=== PATIENT | male | born 1995 | race Caucasian/White ===

== ENCOUNTER 2024-11-07 19:30 | Emergency (ER) | payer OTHER ==
[~2024-11-07] VITALS: Ht 175.3 cm; Wt 122.5 kg
== END 2024-11-07 21:14 | disposition home or self-care (01) ==
LOC: ER 19:30
DX: T23.251A Burn of second degree of right palm, initial encounter (principal); Z88.8 Allergy status to other drugs, medicaments and biological substances; M19.90 Unspecified osteoarthritis, unspecified site; X15.8XXA Contact with other hot household appliances, initial encounter
CPT/HCPCS: 99282